=== PATIENT | male | born 1960 | race Caucasian/White ===

== ENCOUNTER 2022-06-08 17:13 | Inpatient (IN) | payer OTHER ==
[2022-06-08 18:16] VITALS: BMI 23.3
[2022-06-08] MEDS ORDERED: LOPERAMIDE HCL 2 MG CAPSULE PO PRN (18:44)
[2022-06-08] MEDS ORDERED: NICOTINE POLACRILEX 2 MG GUM BUC PRN (18:44)
[2022-06-08] MEDS ORDERED: BENZONATATE 200 MG CAPSULE PO PRN (18:44)
[2022-06-08] MEDS ORDERED: MAGNESIUM HYDROX 2400MG/30ML ORAL SUSPENSION 30 ML CUP PO PRN (18:44)
[2022-06-08] MEDS ORDERED: BENZOCAINE/MENTHOL (CHLORASEPTIC ) LOZENGE MM PRN (18:44)
[2022-06-08] MEDS ORDERED: IBUPROFEN 400 MG TABLET (FP) PO PRN (18:44)
[2022-06-08] MEDS ORDERED: P-EPHED 60MG/TRIPROLIDI 2.5MG TABLET PO PRN (18:44)
[2022-06-08] MEDS ORDERED: MAG HYDROX/AL HYDROX/SIMETH 30 ML UNIT-DOSE CUP PO PRN (18:44)
[2022-06-08] MEDS ORDERED: TUBERCULIN PPD 5 TU/0.1ML SYRINGE (IN PATIENT USE ONLY) ID ONE (18:44)
[2022-06-08] MEDS ORDERED: COLLOIDAL OATMEAL 1 BAR EACH TP PRN (18:44)
[2022-06-08] MEDS ORDERED: ACETAMINOPHEN 325 MG TABLET (FP) PO PRN (18:44)
[2022-06-08] MEDS ORDERED: POLYETHYLENE GLYCOL (HEALTHYLAX) 3350 17 GM PACKET PO PRN (18:44)
[2022-06-08] MEDS ORDERED: IBUPROFEN 600 MG TABLET (FP) PO PRN (18:44)
[2022-06-08] MEDS ORDERED: guaiFENesin 600 MG TABLET.ER (FP) PO PRN (18:44)
[2022-06-08] MEDS ORDERED: AMMONIUM LACTATE 12% LOTION 225 GM BOTTLE TP PRN (18:44)
[2022-06-08] MEDS ORDERED: MELATONIN 5 MG TABLETS PO SCH (22:00)
[2022-06-08] MEDS ORDERED: TUBERCULIN PPD 5 TU/0.1ML VIAL ID ONE (22:34)
[2022-06-08] MEDS: THIAMINE HCL 100 MG TABLET (FP) PO SCH (22:37)
[2022-06-08] MEDS: ALBUTEROL SO4 HFA INHALER IH PRN (23:10)
[2022-06-08] MEDS ORDERED: BUDESONIDE/FORMETEROL FUMARATE 160/4.5 mcg INHALER IH SCH (23:15)
[2022-06-09] MEDS: PRENATAL VITAMINS W/ FOLIC ACID TABLET (FP) PO SCH (10:00)
[2022-06-09] MEDS ORDERED: PATIENT'S OWN MEDICATION (NON-FORMULARY) (Fluticasone Propionate [Flovent Diskus] 50 MCG B IH SCH (10:00)
[2022-06-09] MEDS ORDERED: PANTOPRAZOLE 40 MG TABLET PO SCH (10:00)
[2022-06-09] MEDS: MONTELUKAST NA 10 MG TABLET PO SCH (10:05)
[2022-06-09] MEDS: LORATADINE 10 MG TABLET PO SCH (10:05)
[2022-06-09] MEDS: NIFEdipine E.R. 30 MG TABLET PO SCH (10:05)
[2022-06-09] MEDS: NICOTINE 14 MG/24 HOURS TOPICAL PATCH TD SCH (10:06)
[2022-06-09] MEDS: BUDESONIDE/FORMETEROL FUMARATE 160/4.5 mcg INHALER IH SCH ×2 (10:06→21:05)
[2022-06-09 11:09] LABS: POTASSIUM 4.2 mmol/L (3.5-5.1)
[2022-06-09 11:14] LABS: BLOOD UREA NITROGEN 26.8 mg/dL (7-18)
[2022-06-09 11:15] LABS: ALBUMIN 3.5 g/dl (3.4-5.0)
[2022-06-09 11:18] LABS: BILIRUBIN,TOTAL 0.3 mg/dL (0.2-1); CREATININE 1.7 mg/dL (0.55-1.3)
[2022-06-09 11:19] LABS: TOT PROT 6.7 g/dl (6.4-8.2)
[2022-06-09 11:24] LABS: HEMATOCRIT 32.6 % (35.4-49); HEMOGLOBIN 11.1 GM/dL (11.7-16.9); MCH 32.4 pg (25.7-33.7); MCHC 34.2 g/dl (32.0-35.9); MEAN PLT VOLUME 8.9 fl (7.5-11.1); PLATELET COUNT 287 10^3/uL (134-434); RBC 3.43 M/mm3 (4.00-5.60); RDW 16.8 % (11.9-15.9); WHITE BLOOD COUNT 6.9 K/mm3 (4.0-10.0)
[2022-06-09 11:41] LABS: SYPHILIS W/ RPR CONF NON-REACTIVE (NONREACTIVE)
[2022-06-09] MEDS: ELVITEG/COB/EMTRI/TENOF (GENVOYA) TABLET PO SCH (12:01)
[2022-06-09] MEDS ORDERED: CALCIUM CARBONATE 650 MG TABLET PO PRN (16:03)
[2022-06-09] MEDS: PANTOPRAZOLE 40 MG TABLET PO PRN (16:10)
[2022-06-09] MEDS ORDERED: FAMOTIDINE 20 MG TABLET PO ONE (16:58)
[2022-06-09] MEDS: THIAMINE HCL 100 MG TABLET (FP) PO SCH (21:05)
[2022-06-10] MEDS: ELVITEG/COB/EMTRI/TENOF (GENVOYA) TABLET PO SCH (07:10)
[2022-06-10] MEDS: LORATADINE 10 MG TABLET PO SCH (09:44)
[2022-06-10] MEDS: BUDESONIDE/FORMETEROL FUMARATE 160/4.5 mcg INHALER IH SCH ×2 (09:44→21:06)
[2022-06-10] MEDS: MONTELUKAST NA 10 MG TABLET PO SCH (09:44)
[2022-06-10] MEDS: PRENATAL VITAMINS W/ FOLIC ACID TABLET (FP) PO SCH (09:44)
[2022-06-10] MEDS: NICOTINE 14 MG/24 HOURS TOPICAL PATCH TD SCH (09:44)
[2022-06-10] MEDS: NIFEdipine E.R. 30 MG TABLET PO SCH (09:44)
[2022-06-10] MEDS: ALBUTEROL SO4 HFA INHALER IH PRN (15:34)
[2022-06-10] MEDS: PANTOPRAZOLE 40 MG TABLET PO PRN (20:51)
[2022-06-10] MEDS: THIAMINE HCL 100 MG TABLET (FP) PO SCH (21:06)
[2022-06-10] MEDS: traZODone HCL 50 MG TABLET (FP) PO PRN (21:06)
[2022-06-11] MEDS: ELVITEG/COB/EMTRI/TENOF (GENVOYA) TABLET PO SCH (07:14)
[2022-06-11] MEDS: NICOTINE 14 MG/24 HOURS TOPICAL PATCH TD SCH (09:30)
[2022-06-11] MEDS: BUDESONIDE/FORMETEROL FUMARATE 160/4.5 mcg INHALER IH SCH ×2 (09:30→21:17)
[2022-06-11] MEDS: NIFEdipine E.R. 30 MG TABLET PO SCH (09:31)
[2022-06-11] MEDS: PRENATAL VITAMINS W/ FOLIC ACID TABLET (FP) PO SCH (09:31)
[2022-06-11] MEDS: MONTELUKAST NA 10 MG TABLET PO SCH (09:31)
[2022-06-11] MEDS: LORATADINE 10 MG TABLET PO SCH (09:31)
[2022-06-11] MEDS: ALBUTEROL SO4 HFA INHALER IH PRN (14:12)
[2022-06-11] MEDS: PANTOPRAZOLE 40 MG TABLET PO PRN (19:37)
[2022-06-11] MEDS: THIAMINE HCL 100 MG TABLET (FP) PO SCH (21:16)
[2022-06-11] MEDS: traZODone HCL 50 MG TABLET (FP) PO PRN (21:17)
[2022-06-11] MEDS: hydrOXYzine PAMOATE 25 MG CAPSULE (FP) PO PRN (22:03)
[2022-06-12] MEDS: ELVITEG/COB/EMTRI/TENOF (GENVOYA) TABLET PO SCH (07:11)
[2022-06-12] MEDS: NICOTINE 14 MG/24 HOURS TOPICAL PATCH TD SCH (10:14)
[2022-06-12] MEDS: BUDESONIDE/FORMETEROL FUMARATE 160/4.5 mcg INHALER IH SCH ×2 (10:14→22:06)
[2022-06-12] MEDS: PRENATAL VITAMINS W/ FOLIC ACID TABLET (FP) PO SCH (10:15)
[2022-06-12] MEDS: MONTELUKAST NA 10 MG TABLET PO SCH (10:15)
[2022-06-12] MEDS: NIFEdipine E.R. 30 MG TABLET PO SCH (10:15)
[2022-06-12] MEDS: LORATADINE 10 MG TABLET PO SCH (10:15)
[2022-06-12] MEDS: PANTOPRAZOLE 40 MG TABLET PO PRN (16:42)
[2022-06-12] MEDS: THIAMINE HCL 100 MG TABLET (FP) PO SCH (22:06)
[2022-06-12] MEDS: hydrOXYzine PAMOATE 25 MG CAPSULE (FP) PO PRN (22:07)
[2022-06-12] MEDS: traZODone HCL 50 MG TABLET (FP) PO PRN (22:07)
[2022-06-13] MEDS: ELVITEG/COB/EMTRI/TENOF (GENVOYA) TABLET PO SCH (07:03)
[2022-06-13] MEDS: PRENATAL VITAMINS W/ FOLIC ACID TABLET (FP) PO SCH (09:56)
[2022-06-13] MEDS: MONTELUKAST NA 10 MG TABLET PO SCH (09:56)
[2022-06-13] MEDS: LORATADINE 10 MG TABLET PO SCH (09:56)
[2022-06-13] MEDS: BUDESONIDE/FORMETEROL FUMARATE 160/4.5 mcg INHALER IH SCH ×2 (09:57→21:15)
[2022-06-13] MEDS: NICOTINE 14 MG/24 HOURS TOPICAL PATCH TD SCH (09:57)
[2022-06-13] MEDS: NIFEdipine E.R. 30 MG TABLET PO SCH (09:58)
[2022-06-13] MEDS: PANTOPRAZOLE 40 MG TABLET PO PRN (19:11)
[2022-06-13] MEDS: traZODone HCL 50 MG TABLET (FP) PO PRN (21:13)
[2022-06-13] MEDS: THIAMINE HCL 100 MG TABLET (FP) PO SCH (21:13)
[2022-06-13] MEDS: hydrOXYzine PAMOATE 25 MG CAPSULE (FP) PO PRN (21:15)
[2022-06-14] MEDS: ELVITEG/COB/EMTRI/TENOF (GENVOYA) TABLET PO SCH (07:02)
[2022-06-14] MEDS ORDERED: NON-FORMULARY MED PO PRN (10:00)
[2022-06-14] MEDS: PRENATAL VITAMINS W/ FOLIC ACID TABLET (FP) PO SCH (10:18)
[2022-06-14] MEDS: NICOTINE 14 MG/24 HOURS TOPICAL PATCH TD SCH (10:18)
[2022-06-14] MEDS: LORATADINE 10 MG TABLET PO SCH (10:18)
[2022-06-14] MEDS: MONTELUKAST NA 10 MG TABLET PO SCH (10:18)
[2022-06-14] MEDS: NIFEdipine E.R. 30 MG TABLET PO SCH (10:18)
[2022-06-14] MEDS: BUDESONIDE/FORMETEROL FUMARATE 160/4.5 mcg INHALER IH SCH ×2 (10:18→21:08)
[2022-06-14] MEDS: ALBUTEROL SO4 HFA INHALER IH PRN (13:46)
[2022-06-14] MEDS: NON-FORMULARY MED PO PRN (14:57)
[2022-06-14] MEDS: traZODone HCL 50 MG TABLET (FP) PO PRN (21:07)
[2022-06-14] MEDS: THIAMINE HCL 100 MG TABLET (FP) PO SCH (21:07)
[2022-06-14] MEDS: hydrOXYzine PAMOATE 25 MG CAPSULE (FP) PO PRN (21:08)
[2022-06-15] MEDS: ELVITEG/COB/EMTRI/TENOF (GENVOYA) TABLET PO SCH (07:09)
[2022-06-15] MEDS: NIFEdipine E.R. 30 MG TABLET PO SCH (09:38)
[2022-06-15] MEDS: NON-FORMULARY MED PO PRN (09:38)
[2022-06-15] MEDS: PRENATAL VITAMINS W/ FOLIC ACID TABLET (FP) PO SCH (09:38)
[2022-06-15] MEDS: LORATADINE 10 MG TABLET PO SCH (09:38)
[2022-06-15] MEDS: NICOTINE 14 MG/24 HOURS TOPICAL PATCH TD SCH (09:39)
[2022-06-15] MEDS: BUDESONIDE/FORMETEROL FUMARATE 160/4.5 mcg INHALER IH SCH ×2 (09:39→21:30)
[2022-06-15] MEDS: MONTELUKAST NA 10 MG TABLET PO SCH (09:39)
[2022-06-15] MEDS: ALBUTEROL SO4 HFA INHALER IH PRN (14:27)
[2022-06-15] MEDS: THIAMINE HCL 100 MG TABLET (FP) PO SCH (21:30)
[2022-06-15] MEDS: traZODone HCL 50 MG TABLET (FP) PO PRN (21:30)
[2022-06-15] MEDS: hydrOXYzine PAMOATE 25 MG CAPSULE (FP) PO PRN (21:31)
[2022-06-16] MEDS: ALBUTEROL SO4 HFA INHALER IH PRN (05:48)
[2022-06-16] MEDS: ELVITEG/COB/EMTRI/TENOF (GENVOYA) TABLET PO SCH (07:16)
[2022-06-16] MEDS: PRENATAL VITAMINS W/ FOLIC ACID TABLET (FP) PO SCH (10:24)
[2022-06-16] MEDS: MONTELUKAST NA 10 MG TABLET PO SCH (10:24)
[2022-06-16] MEDS: NIFEdipine E.R. 30 MG TABLET PO SCH (10:24)
[2022-06-16] MEDS: LORATADINE 10 MG TABLET PO SCH (10:24)
[2022-06-16] MEDS: NICOTINE 14 MG/24 HOURS TOPICAL PATCH TD SCH (10:24)
[2022-06-16] MEDS: BUDESONIDE/FORMETEROL FUMARATE 160/4.5 mcg INHALER IH SCH ×2 (10:25→21:12)
[2022-06-16] MEDS: NON-FORMULARY MED PO PRN (10:26)
[2022-06-16] MEDS: traZODone HCL 100 MG TABLET (FP) PO PRN (21:12)
[2022-06-16] MEDS: THIAMINE HCL 100 MG TABLET (FP) PO SCH (21:12)
[2022-06-16] MEDS: hydrOXYzine PAMOATE 25 MG CAPSULE (FP) PO PRN (21:13)
[2022-06-17] MEDS: ELVITEG/COB/EMTRI/TENOF (GENVOYA) TABLET PO SCH (07:11)
[2022-06-17] MEDS: PRENATAL VITAMINS W/ FOLIC ACID TABLET (FP) PO SCH (09:33)
[2022-06-17] MEDS: LORATADINE 10 MG TABLET PO SCH (09:33)
[2022-06-17] MEDS: MONTELUKAST NA 10 MG TABLET PO SCH (09:33)
[2022-06-17] MEDS: NIFEdipine E.R. 30 MG TABLET PO SCH (09:33)
[2022-06-17] MEDS: NICOTINE 14 MG/24 HOURS TOPICAL PATCH TD SCH (09:34)
[2022-06-17] MEDS ORDERED: MAG HYDROX/AL HYDROX/SIMETH -MYLANTA- ORAL SUSPENSION PO ONE (09:45)
[2022-06-17] MEDS: NON-FORMULARY MED PO PRN (10:40)
[2022-06-17] MEDS: FERROUS SO4 325 MG TABLET (FP) PO SCH (10:40)
[2022-06-17] MEDS: BUDESONIDE/FORMETEROL FUMARATE 160/4.5 mcg INHALER IH SCH ×2 (10:41→21:23)
[2022-06-17 16:34] LABS: BASO % 0.5 % (0-2.0); EOS % 0.6 % (0-4.5); HEMATOCRIT 33.9 % (35.4-49); HEMOGLOBIN 11.4 GM/dL (11.7-16.9); LYMPH % 19.9 % (8-40); MCH 32.6 pg (25.7-33.7); MCHC 33.7 g/dl (32.0-35.9); MEAN CELL VOLUME 96.7 fl (80-96); MEAN PLT VOLUME 9.1 fl (7.5-11.1); MONO % 10.5 % (3.8-10.2); NEUT % 68.5 % (42.8-82.8); PLATELET COUNT 338 10^3/uL (134-434); POTASSIUM 4.4 mmol/L (3.5-5.1); RBC 3.51 M/mm3 (4.00-5.60); RDW 17.1 % (11.9-15.9); WHITE BLOOD COUNT 14.2 K/mm3 (4.0-10.0)
[2022-06-17 16:37] LABS: ALBUMIN 3.7 g/dl (3.4-5.0); CALCIUM 8.7 mg/dL (8.5-10.1)
[2022-06-17 16:38] LABS: BLOOD UREA NITROGEN 25.7 mg/dL (7-18)
[2022-06-17 16:41] LABS: CREATININE 1.2 mg/dL (0.55-1.3)
[2022-06-17 16:42] LABS: BILIRUBIN,TOTAL 0.7 mg/dL (0.2-1); TOT PROT 7.1 g/dl (6.4-8.2)
[2022-06-17] MEDS: traZODone HCL 100 MG TABLET (FP) PO PRN (21:22)
[2022-06-17] MEDS: hydrOXYzine PAMOATE 25 MG CAPSULE (FP) PO PRN (21:22)
[2022-06-17] MEDS: THIAMINE HCL 100 MG TABLET (FP) PO SCH (21:23)
[2022-06-18] MEDS: ELVITEG/COB/EMTRI/TENOF (GENVOYA) TABLET PO SCH (07:01)
[2022-06-18] MEDS: PRENATAL VITAMINS W/ FOLIC ACID TABLET (FP) PO SCH (10:07)
[2022-06-18] MEDS: FERROUS SO4 325 MG TABLET (FP) PO SCH (10:08)
[2022-06-18] MEDS: MONTELUKAST NA 10 MG TABLET PO SCH (10:08)
[2022-06-18] MEDS: NON-FORMULARY MED PO PRN (10:08)
[2022-06-18] MEDS: NIFEdipine E.R. 30 MG TABLET PO SCH (10:08)
[2022-06-18] MEDS: LORATADINE 10 MG TABLET PO SCH (10:08)
[2022-06-18] MEDS: NICOTINE 14 MG/24 HOURS TOPICAL PATCH TD SCH (10:09)
[2022-06-18] MEDS: ALBUTEROL SO4 HFA INHALER IH PRN (10:09)
[2022-06-18] MEDS: BUDESONIDE/FORMETEROL FUMARATE 160/4.5 mcg INHALER IH SCH ×2 (10:21→21:11)
[2022-06-18] MEDS ORDERED: CYANOCOBALAMIN (VITAMIN B-12) 1000 MCG/1 ML VIAL IM ONE (11:49)
[2022-06-18] MEDS: THIAMINE HCL 100 MG TABLET (FP) PO SCH (21:12)
[2022-06-18] MEDS: traZODone HCL 100 MG TABLET (FP) PO PRN (21:13)
[2022-06-18] MEDS: hydrOXYzine PAMOATE 25 MG CAPSULE (FP) PO PRN (21:13)
[2022-06-19] MEDS: ELVITEG/COB/EMTRI/TENOF (GENVOYA) TABLET PO SCH (07:09)
[2022-06-19] MEDS: BUDESONIDE/FORMETEROL FUMARATE 160/4.5 mcg INHALER IH SCH ×2 (09:34→21:51)
[2022-06-19] MEDS: NON-FORMULARY MED PO PRN (09:34)
[2022-06-19] MEDS: PRENATAL VITAMINS W/ FOLIC ACID TABLET (FP) PO SCH (09:34)
[2022-06-19] MEDS: NIFEdipine E.R. 30 MG TABLET PO SCH (09:34)
[2022-06-19] MEDS: FERROUS SO4 325 MG TABLET (FP) PO SCH (09:35)
[2022-06-19] MEDS: LORATADINE 10 MG TABLET PO SCH (09:35)
[2022-06-19] MEDS: NICOTINE 14 MG/24 HOURS TOPICAL PATCH TD SCH (09:35)
[2022-06-19] MEDS: MONTELUKAST NA 10 MG TABLET PO SCH (09:35)
[2022-06-19] MEDS: ALBUTEROL SO4 HFA INHALER IH PRN (16:04)
[2022-06-19] MEDS: THIAMINE HCL 100 MG TABLET (FP) PO SCH (21:51)
[2022-06-19] MEDS: traZODone HCL 100 MG TABLET (FP) PO PRN (21:51)
[2022-06-20] MEDS: ELVITEG/COB/EMTRI/TENOF (GENVOYA) TABLET PO SCH (07:03)
[2022-06-20] MEDS: PRENATAL VITAMINS W/ FOLIC ACID TABLET (FP) PO SCH (10:18)
[2022-06-20] MEDS: NIFEdipine E.R. 30 MG TABLET PO SCH (10:18)
[2022-06-20] MEDS: FERROUS SO4 325 MG TABLET (FP) PO SCH (10:18)
[2022-06-20] MEDS: BUDESONIDE/FORMETEROL FUMARATE 160/4.5 mcg INHALER IH SCH ×2 (10:18→21:10)
[2022-06-20] MEDS: NICOTINE 14 MG/24 HOURS TOPICAL PATCH TD SCH (10:18)
[2022-06-20] MEDS: LORATADINE 10 MG TABLET PO SCH (10:19)
[2022-06-20] MEDS: NON-FORMULARY MED PO PRN (10:19)
[2022-06-20] MEDS: MONTELUKAST NA 10 MG TABLET PO SCH (10:19)
[2022-06-20] MEDS: traZODone HCL 100 MG TABLET (FP) PO PRN (21:09)
[2022-06-20] MEDS: THIAMINE HCL 100 MG TABLET (FP) PO SCH (21:09)
[2022-06-20] MEDS: hydrOXYzine PAMOATE 25 MG CAPSULE (FP) PO PRN (21:10)
[2022-06-21] MEDS: ELVITEG/COB/EMTRI/TENOF (GENVOYA) TABLET PO SCH (07:04)
[2022-06-21] MEDS: PRENATAL VITAMINS W/ FOLIC ACID TABLET (FP) PO SCH (09:45)
[2022-06-21] MEDS: BUDESONIDE/FORMETEROL FUMARATE 160/4.5 mcg INHALER IH SCH ×2 (09:45→21:19)
[2022-06-21] MEDS: MONTELUKAST NA 10 MG TABLET PO SCH (09:45)
[2022-06-21] MEDS: LORATADINE 10 MG TABLET PO SCH (09:45)
[2022-06-21] MEDS: NIFEdipine E.R. 30 MG TABLET PO SCH (09:45)
[2022-06-21] MEDS: FERROUS SO4 325 MG TABLET (FP) PO SCH (09:46)
[2022-06-21] MEDS: NICOTINE 14 MG/24 HOURS TOPICAL PATCH TD SCH (09:46)
[2022-06-21] MEDS: NON-FORMULARY MED PO PRN (09:46)
[2022-06-21] MEDS: hydrOXYzine PAMOATE 25 MG CAPSULE (FP) PO PRN (21:19)
[2022-06-21] MEDS: THIAMINE HCL 100 MG TABLET (FP) PO SCH (21:19)
[2022-06-21] MEDS: traZODone HCL 100 MG TABLET (FP) PO PRN (21:19)
[2022-06-22] MEDS: ELVITEG/COB/EMTRI/TENOF (GENVOYA) TABLET PO SCH (07:13)
[2022-06-22] MEDS: MONTELUKAST NA 10 MG TABLET PO SCH (10:26)
[2022-06-22] MEDS: PRENATAL VITAMINS W/ FOLIC ACID TABLET (FP) PO SCH (10:26)
[2022-06-22] MEDS: NICOTINE 14 MG/24 HOURS TOPICAL PATCH TD SCH (10:27)
[2022-06-22] MEDS: BUDESONIDE/FORMETEROL FUMARATE 160/4.5 mcg INHALER IH SCH ×2 (10:27→21:05)
[2022-06-22] MEDS: LORATADINE 10 MG TABLET PO SCH (10:27)
[2022-06-22] MEDS: NIFEdipine E.R. 30 MG TABLET PO SCH (10:27)
[2022-06-22] MEDS: FERROUS SO4 325 MG TABLET (FP) PO SCH (10:27)
[2022-06-22] MEDS: NON-FORMULARY MED PO PRN (10:27)
[2022-06-22] MEDS: THIAMINE HCL 100 MG TABLET (FP) PO SCH (21:05)
[2022-06-22] MEDS: hydrOXYzine PAMOATE 25 MG CAPSULE (FP) PO PRN (21:05)
[2022-06-22] MEDS: traZODone HCL 100 MG TABLET (FP) PO PRN (21:05)
[2022-06-23] MEDS: ELVITEG/COB/EMTRI/TENOF (GENVOYA) TABLET PO SCH (07:00)
[2022-06-23] MEDS: MONTELUKAST NA 10 MG TABLET PO SCH (09:49)
[2022-06-23] MEDS: PRENATAL VITAMINS W/ FOLIC ACID TABLET (FP) PO SCH (09:49)
[2022-06-23] MEDS: NIFEdipine E.R. 30 MG TABLET PO SCH (09:49)
[2022-06-23] MEDS: LORATADINE 10 MG TABLET PO SCH (09:49)
[2022-06-23] MEDS: BUDESONIDE/FORMETEROL FUMARATE 160/4.5 mcg INHALER IH SCH ×2 (09:49→21:04)
[2022-06-23] MEDS: NICOTINE 14 MG/24 HOURS TOPICAL PATCH TD SCH (09:49)
[2022-06-23] MEDS: FERROUS SO4 325 MG TABLET (FP) PO SCH (09:49)
[2022-06-23] MEDS: NON-FORMULARY MED PO PRN (09:50)
[2022-06-23] MEDS: ALBUTEROL SO4 HFA INHALER IH PRN (14:52)
[2022-06-23] MEDS: hydrOXYzine PAMOATE 25 MG CAPSULE (FP) PO PRN (21:04)
[2022-06-23] MEDS: traZODone HCL 100 MG TABLET (FP) PO PRN (21:04)
[2022-06-23] MEDS: THIAMINE HCL 100 MG TABLET (FP) PO SCH (21:04)
[2022-06-24] MEDS: ELVITEG/COB/EMTRI/TENOF (GENVOYA) TABLET PO SCH (07:04)
[2022-06-24] MEDS: PRENATAL VITAMINS W/ FOLIC ACID TABLET (FP) PO SCH (10:01)
[2022-06-24] MEDS: NON-FORMULARY MED PO PRN (10:01)
[2022-06-24] MEDS: BUDESONIDE/FORMETEROL FUMARATE 160/4.5 mcg INHALER IH SCH ×2 (10:01→21:33)
[2022-06-24] MEDS: FERROUS SO4 325 MG TABLET (FP) PO SCH (10:02)
[2022-06-24] MEDS: NIFEdipine E.R. 30 MG TABLET PO SCH (10:02)
[2022-06-24] MEDS: MONTELUKAST NA 10 MG TABLET PO SCH (10:02)
[2022-06-24] MEDS: LORATADINE 10 MG TABLET PO SCH (10:02)
[2022-06-24] MEDS: NICOTINE 14 MG/24 HOURS TOPICAL PATCH TD SCH (10:03)
[2022-06-24] MEDS: ALBUTEROL SO4 HFA INHALER IH PRN (13:27)
[2022-06-24] MEDS: THIAMINE HCL 100 MG TABLET (FP) PO SCH (21:32)
[2022-06-24] MEDS: traZODone HCL 100 MG TABLET (FP) PO PRN (21:32)
[2022-06-24] MEDS: hydrOXYzine PAMOATE 25 MG CAPSULE (FP) PO PRN (21:34)
[2022-06-25] MEDS: ELVITEG/COB/EMTRI/TENOF (GENVOYA) TABLET PO SCH (07:00)
[2022-06-25] MEDS: LORATADINE 10 MG TABLET PO SCH (09:48)
[2022-06-25] MEDS: NICOTINE 14 MG/24 HOURS TOPICAL PATCH TD SCH (09:48)
[2022-06-25] MEDS: FERROUS SO4 325 MG TABLET (FP) PO SCH (09:48)
[2022-06-25] MEDS: MONTELUKAST NA 10 MG TABLET PO SCH (09:48)
[2022-06-25] MEDS: NIFEdipine E.R. 30 MG TABLET PO SCH (09:48)
[2022-06-25] MEDS: NON-FORMULARY MED PO PRN (09:50)
[2022-06-25] MEDS: BUDESONIDE/FORMETEROL FUMARATE 160/4.5 mcg INHALER IH SCH ×2 (09:51→21:28)
[2022-06-25] MEDS: PRENATAL VITAMINS W/ FOLIC ACID TABLET (FP) PO SCH (11:00)
[2022-06-25] MEDS: ALBUTEROL SO4 HFA INHALER IH PRN (15:21)
[2022-06-25] MEDS: hydrOXYzine PAMOATE 25 MG CAPSULE (FP) PO PRN (21:28)
[2022-06-25] MEDS: THIAMINE HCL 100 MG TABLET (FP) PO SCH (21:28)
[2022-06-25] MEDS: traZODone HCL 100 MG TABLET (FP) PO PRN (21:29)
[2022-06-26] MEDS: ELVITEG/COB/EMTRI/TENOF (GENVOYA) TABLET PO SCH (07:00)
[2022-06-26] MEDS: BUDESONIDE/FORMETEROL FUMARATE 160/4.5 mcg INHALER IH SCH ×2 (10:57→21:45)
[2022-06-26] MEDS: PRENATAL VITAMINS W/ FOLIC ACID TABLET (FP) PO SCH (10:58)
[2022-06-26] MEDS: LORATADINE 10 MG TABLET PO SCH (10:58)
[2022-06-26] MEDS: NIFEdipine E.R. 30 MG TABLET PO SCH (10:58)
[2022-06-26] MEDS: FERROUS SO4 325 MG TABLET (FP) PO SCH (10:58)
[2022-06-26] MEDS: MONTELUKAST NA 10 MG TABLET PO SCH (10:58)
[2022-06-26] MEDS: NICOTINE 14 MG/24 HOURS TOPICAL PATCH TD SCH (10:58)
[2022-06-26] MEDS: ALBUTEROL SO4 HFA INHALER IH PRN (13:03)
[2022-06-26] MEDS: THIAMINE HCL 100 MG TABLET (FP) PO SCH (21:45)
[2022-06-26] MEDS: traZODone HCL 100 MG TABLET (FP) PO PRN (21:45)
[2022-06-26] MEDS: hydrOXYzine PAMOATE 25 MG CAPSULE (FP) PO PRN (21:46)
[2022-06-27 07:06] VITALS: BP 130/79; PULSE 91; RESP 16; TEMP 97.7
[2022-06-27] MEDS: ELVITEG/COB/EMTRI/TENOF (GENVOYA) TABLET PO SCH (07:09)
[2022-06-27] MEDS ORDERED: CYANOCOBALAMIN (VITAMIN B-12) 1000 MCG/1 ML VIAL IM ONE ×2 (10:00→11:49)
== END 2022-06-27 07:50 | disposition home or self-care (01) | DRG 772 ==
LOC: YASAS 17:13 → Y3W 22:09
PROVIDERS: ADMIT Allergy & Immunology; ATTEND Psychiatry & Neurology Pain Medicine
PROC: HZ42ZZZ Group Counseling for Substance Abuse Treatment, Cognitive-Behavioral (ICD-10-PCS; principal; 2022-06-08)
DX: F14.20 Cocaine dependence, uncomplicated (principal); F10.10 Alcohol abuse, uncomplicated; F17.210 Nicotine dependence, cigarettes, uncomplicated; Z21 Asymptomatic human immunodeficiency virus [HIV] infection status; D64.9 Anemia, unspecified; K21.9 Gastro-esophageal reflux disease without esophagitis; I10 Essential (primary) hypertension; J45.909 Unspecified asthma, uncomplicated; H91.92 Unspecified hearing loss, left ear; I69.898 Other sequelae of other cerebrovascular disease; Z87.19 Personal history of other diseases of the digestive system
CPT/HCPCS: 36415; 80053; 82947; 82962; 85025; 85027; 86780; 86803; C9803-CS; U0003; U0005